=== PATIENT | female | born 1940 | race Two or more races ===

== ENCOUNTER 2021-08-29 15:20 | Emergency (ER) | payer OTHER ==
[~2021-08-29] VITALS: Ht 149.9 cm; Wt 47.6 kg
[2021-08-29 15:25] VITALS: BP 164/97
== END 2021-08-29 20:26 | disposition left against medical advice (07) ==
LOC: ER 15:20
DX: R51.9 Headache, unspecified (principal); Z53.21 Procedure and treatment not carried out due to patient leaving prior to being seen by health care provider; W18.39XA Other fall on same level, initial encounter; Y93.89 Activity, other specified; Y92.89 Other specified places as the place of occurrence of the external cause; Y99.8 Other external cause status
CPT/HCPCS: 70450; 72125

== ENCOUNTER 2022-12-02 16:29 | Emergency (ER) | payer OTHER ==
[~2022-12-02] VITALS: Ht 149.9 cm; Wt 38.0 kg
[2022-12-02 17:08] LABS: Urine WBC None Seen /hpf (0 - 5)
[2022-12-02 17:39] LABS: Urine Bacteria NONE SEEN /hpf (None Seen); Urine Blood Negative /uL (Negative); Urine Specific Gravity 1.015 (1.001-1.035)
[2022-12-02] MEDS ORDERED: METH4PAK PO (17:55)
[2022-12-02] MEDS ORDERED: LEVO500T31 PO (17:55)
[2022-12-02] MEDS ORDERED: PHEN200T16 PO (17:55)
[2022-12-02] MEDS ORDERED: PHENAZOPYRIDINE HCL 100 MG TAB PO ONE (18:00)
[2022-12-02 18:26] VITALS: BP 138/82
== END 2022-12-02 18:29 | disposition home or self-care (01) ==
LOC: ER 16:29
DX: N39.0 Urinary tract infection, site not specified (principal); J32.9 Chronic sinusitis, unspecified; Z90.710 Acquired absence of both cervix and uterus; Z88.1 Allergy status to other antibiotic agents; Z91.018 Allergy to other foods; Z88.2 Allergy status to sulfonamides; Z91.010 Allergy to peanuts
CPT/HCPCS: 81001